=== PATIENT | female | born 1950 | race Caucasian/White ===

== ENCOUNTER → 2016-03-13 | Outpatient (CLI) | payer BC ==
[2016-03-13 22:27] LABS: ALT 66 U/L (9-52); AST 46 U/L (14-36); Alkaline Phosphatase 67 U/L (38-126); Anion Gap 10 mmol/L; Blood Urea Nitrogen 23 mg/dL (7-17); Calcium 9.6 mg/dL (8.4-10.2); Carbon Dioxide 26 mmol/L (22-30); Chloride 106 mmol/L (98-107); Cholesterol 156 mg/dL (<200); Glucose 93 mg/dL (74-99); HDL Cholesterol 51 mg/dL (40-60); Non-African American GFR(MDRD) >60 (>60 ml/min/1.73 sqM); Potassium 4.5 mmol/L (3.5-5.1); Sodium 142 mmol/L (137-145); Total Bilirubin 1.5 mg/dL (0.2-1.3); Total Protein 6.4 g/dL (6.3-8.2); Triglycerides 114 mg/dL (<150)
== END | disposition home or self-care (01) ==
LOC: MMGSC 09:41
PROVIDERS: ATTEND Family Medicine
DX: Z00.00 Encounter for general adult medical examination without abnormal findings (principal); R79.89 Other specified abnormal findings of blood chemistry; E78.00 Pure hypercholesterolemia, unspecified; I10 Essential (primary) hypertension
CPT/HCPCS: 36415; 80053; 80061; 82306

== ENCOUNTER → 2016-06-20 | Outpatient (CLI) | payer BC | LOC: MMGSC 12:06 | PROVIDERS: ATTEND Family Medicine | DX: N39.0 Urinary tract infection, site not specified (principal) | CPT/HCPCS: 87086 ==

== ENCOUNTER → 2016-08-22 | Outpatient (CLI) | payer BC ==
[2016-08-22 18:40] LABS: ALT 72 U/L (9-52); AST 51 U/L (14-36); Iron 84 ug/dL (37-170)
[2016-08-22 18:51] LABS: % Iron Saturation 27.6 % (20-50); Total Iron Binding Capacity 304 ug/dL (265-497)
[2016-08-22 19:58] LABS: Hepatitis B Surface Ag Index 0.04
[2016-08-22 20:03] LABS: Hepatitis B Core IgM Index 0.02
[2016-08-22 20:15] LABS: Hepatitis C Virus IgG Ab Negative (Negative); Hepatitis C Virus IgG Index 0.01
== END | disposition home or self-care (01) ==
LOC: MMGSC 10:12
PROVIDERS: ATTEND Family Medicine
DX: R79.89 Other specified abnormal findings of blood chemistry (principal)
CPT/HCPCS: 36415; 80074; 82390; 82728; 83516; 83540; 83550; 84450; 84460

== ENCOUNTER → 2017-01-09 | Outpatient (CLI) | payer MEDICARE, BC ==
[2017-01-09 19:04] LABS: ALT 66 U/L (9-52); AST 51 U/L (14-36); Alkaline Phosphatase 71 U/L (38-126); Anion Gap 8 mmol/L; Blood Urea Nitrogen 22 mg/dL (7-17); Calcium 9.3 mg/dL (8.4-10.2); Carbon Dioxide 27 mmol/L (22-30); Chloride 107 mmol/L (98-107); Cholesterol 208 mg/dL (<200); Glucose 97 mg/dL (74-99); HDL Cholesterol 57 mg/dL (40-60); Non-African American GFR(MDRD) >60 (>60 ml/min/1.73 sqM); Potassium 4.9 mmol/L (3.5-5.1); Sodium 142 mmol/L (137-145); Total Bilirubin 1.2 mg/dL (0.2-1.3); Total Protein 6.9 g/dL (6.3-8.2)
== END | disposition home or self-care (01) ==
LOC: MMGSC 10:35
PROVIDERS: ATTEND Family Medicine
DX: E78.5 Hyperlipidemia, unspecified (principal); I10 Essential (primary) hypertension; R79.89 Other specified abnormal findings of blood chemistry
CPT/HCPCS: 36415; 80053; 80061

== ENCOUNTER → 2017-08-23 | Outpatient (CLI) | payer MEDICARE, BC ==
[2017-08-23 10:14] LABS: Appearance,Urine Clear (Clear); Bacteria,Urine Rare /hpf; Bilirubin,Urine Negative (Negative); Blood,Urine Negative (Negative); Color,Urine Yellow; Glucose,Urine (UA) Negative (Negative); Ketones,Urine Negative (Negative); Leukocyte Esterase,Urine Trace (Negative); Mucus,Urine Occasional /hpf; Nitrite,Urine Negative (Negative); Protein,Urine Trace (Negative); RBC,Urine <1 /hpf (0-5); Specific Gravity,Urine 1.022 (1.001-1.035); Squamous Epithelial Cell,Urine <1 /hpf (0-4); Urobilinogen,Urine <2.0 mg/dL (<2.0); WBC,Urine 2 /hpf (0-5)
[2017-08-23 10:16] LABS: Basophils % (A) 1 %; Eosinophils # (A) 0.3 k/uL (0-0.7); Eosinophils % (A) 5 %; HCT 41.6 % (34.0-46.0); HGB 13.9 gm/dL (11.4-16.0); Lymphocytes # (A) 1.7 k/uL (1.0-4.8); Lymphocytes % (A) 29 %; MCH 29.2 pg (25.0-35.0); MCHC 33.3 g/dL (31.0-37.0); MCV 87.6 fL (80.0-100.0); Mean Platelet Volume 7.9; Monocytes # (A) 0.3 k/uL (0-1.0); Monocytes % (A) 6 %; Neutrophils # (A) 3.4 k/uL (1.3-7.7); Neutrophils % (A) 58 %; Platelet Count 247 k/uL (150-450); RBC 4.75 m/uL (3.80-5.40); RDW 13.6 % (11.5-15.5); WBC 5.9 k/uL (3.8-10.6)
[2017-08-23 10:30] LABS: Partial Thromboplastin Time 22.3 sec (22.0-30.0); Prothrombin Time 9.8 sec (9.0-12.0)
[2017-08-23 10:53] LABS: ALT 78 U/L (9-52); AST 56 U/L (14-36); Albumin 4.5 g/dL (3.5-5.0); Alkaline Phosphatase 80 U/L (38-126); Anion Gap 12 mmol/L; Blood Urea Nitrogen 27 mg/dL (7-17); Calcium 9.6 mg/dL (8.4-10.2); Carbon Dioxide 25 mmol/L (22-30); Chloride 105 mmol/L (98-107); Creatine Kinase 435 U/L (30-135); Glucose 104 mg/dL (74-99); Potassium 4.8 mmol/L (3.5-5.1); Sodium 142 mmol/L (137-145); Total Bilirubin 1.6 mg/dL (0.2-1.3); Total Protein 6.9 g/dL (6.3-8.2)
== END | disposition home or self-care (01) ==
LOC: LABWHC1 09:28
PROVIDERS: ATTEND Orthopaedic Surgery
DX: Z01.818 Encounter for other preprocedural examination (principal); M79.7 Fibromyalgia; Z01.812 Encounter for preprocedural laboratory examination
CPT/HCPCS: 36415; 80053; 81001; 82550; 85025; 85610; 85730; 87086; 93005

== ENCOUNTER → 2018-04-22 | Outpatient (CLI) | payer MEDICARE, BC ==
--- NOTE | 2018-04-23 10:28 | MM ---
Reason for exam: screening (asymptomatic). Last mammogram was performed 1 year and 2 months ago. History: Patient is postmenopausal and history of other cancer. Cyst aspiration of the right breast. Excisional biopsy of the left breast. Took estrogen for 15 years beginning at age 36. Physical Findings: A clinical breast exam by your physician is recommended on an annual basis and results should be correlated with mammographic findings. MG 3D Screening Mammo W/Cad Bilateral CC and MLO view(s) were taken. Prior study comparison: February 12, 2017, bilateral MG 3d screening mammo w/cad. September 13, 2015, bilateral MG 3d screening mammo w/cad. The breast tissue is almost entirely fat. Finding: There is a stable 3 mm oval mass in the central position of the right breast. There are benign appearing calcifications bilaterally. No significant changes in finding since February 12, 2017 and September 13, 2015. ASSESSMENT: Benign, BI-RAD 2 RECOMMENDATION: Routine screening mammogram of both breasts in 1 year.
== END | disposition home or self-care (01) ==
LOC: RADMAMWWP 08:36
PROVIDERS: ATTEND Family Medicine
DX: Z12.31 Encounter for screening mammogram for malignant neoplasm of breast (principal)
CPT/HCPCS: 77063; 77067

== ENCOUNTER → 2018-05-27 | Outpatient (CLI) | payer MEDICARE, BC ==
--- NOTE | 2018-05-27 10:18 | US ---
EXAMINATION TYPE: US liver DATE OF EXAM: 05/27/2018 COMPARISON: NONE CLINICAL HISTORY: R94.5 Abnormal LFT. EXAM MEASUREMENTS: Liver Length: 15.4 cm Gallbladder Wall: Surgically absent CBD: 0.6 cm Right Kidney: 11.0 x 4.1 x 4.8 cm Pancreas: wnl Liver: Increased attenuation Gallbladder: Surgically absent CBD: wnl Right Kidney: superior cyst noted measuring 2.6 x 1.9 x 2.4cm IMPRESSION: 1. Postcholecystectomy changes. 2. Liver is increased in attenuation to be seen with hepatic steatosis. Hepatitis or diffuse hepatoce llular disease in the differential diagnosis. 3. Simple appearing right renal cyst.
== END | disposition home or self-care (01) ==
LOC: RADUSWWP 09:33
PROVIDERS: ATTEND Family Medicine
DX: K76.0 Fatty (change of) liver, not elsewhere classified (principal); N28.1 Cyst of kidney, acquired; Z90.49 Acquired absence of other specified parts of digestive tract
CPT/HCPCS: 76705

== ENCOUNTER → 2019-08-21 | Outpatient (CLI) | payer MEDICARE, BC ==
--- NOTE | 2019-08-24 11:24 | MM ---
Reason for exam: screening (asymptomatic). Last mammogram was performed 1 year and 4 months ago. History: Patient is postmenopausal and history of other cancer. Cyst aspiration of the right breast. Excisional biopsy of the left breast. Took hormonal contraceptives for 10 years. Took estrogen for 15 years beginning at age 36. Physical Findings: A clinical breast exam by your physician is recommended on an annual basis and results should be correlated with mammographic findings. MG 3D Screening Mammo W/Cad Bilateral CC and MLO view(s) were taken. Prior study comparison: April 22, 2018, bilateral MG 3d screening mammo w/cad. February 12, 2017, bilateral MG 3d screening mammo w/cad. The breast tissue is almost entirely fat. Some medial dermal calcifications are benign. No significant changes when compared with prior studies. ASSESSMENT: Negative, BI-RAD 1 RECOMMENDATION: Routine screening mammogram of both breasts in 1 year.
== END | disposition home or self-care (01) ==
LOC: RADMAMWWP 13:16
PROVIDERS: ATTEND Family Medicine
DX: Z12.31 Encounter for screening mammogram for malignant neoplasm of breast (principal)
CPT/HCPCS: 77063; 77067

== ENCOUNTER → 2020-09-09 | Outpatient (CLI) | payer MEDICARE, BC ==
--- NOTE | 2020-09-12 14:19 | MM ---
Reason for exam: screening (asymptomatic). Last mammogram was performed 1 year and 1 month ago. History: Patient is postmenopausal and history of other cancer. Cyst aspiration of the right breast. Excisional biopsy of the left breast. Took hormonal contraceptives for 10 years. Took estrogen for 15 years beginning at age 36. Physical Findings: A clinical breast exam by your physician is recommended on an annual basis and results should be correlated with mammographic findings. MG 3D Screening Mammo W/Cad Bilateral CC and MLO view(s) were taken. Prior study comparison: August 21, 2019, bilateral MG 3d screening mammo w/cad. April 22, 2018, bilateral MG 3d screening mammo w/cad. There are scattered fibroglandular densities. ASSESSMENT: Negative, BI-RAD 1 RECOMMENDATION: Routine screening mammogram of both breasts in 1 year.
== END | disposition home or self-care (01) ==
LOC: RADMAMWWP 14:37
PROVIDERS: ATTEND Family Medicine
DX: Z12.31 Encounter for screening mammogram for malignant neoplasm of breast (principal); Z78.0 Asymptomatic menopausal state; Z85.9 Personal history of malignant neoplasm, unspecified; Z79.3 Long term (current) use of hormonal contraceptives
CPT/HCPCS: 77063; 77067

== ENCOUNTER 2021-02-05 12:40 | Emergency (ER) | payer MEDICARE, BC ==
[2021-02-05 12:44] VITALS: BP 133/57; PULSE 68; RESP 18; TEMP 97.9
[2021-02-05] MEDS ORDERED: ACETAMINOPHEN TAB 500 MG TAB PO STA (13:08)
[2021-02-05] MEDS ORDERED: IBUPROFEN 800 MG TAB PO STA (13:14)
--- NOTE | 2021-02-05 13:35 | XR ---
EXAMINATION TYPE: XR clavicle LT DATE OF EXAM: 02/05/2021 1:22 PM INDICATION: Patient age:Female; 71 years old; Reason for study: pain; PHH. COMPARISON: Radiograph the shoulder same day . TECHNIQUE: AP and cephalic tilt views were obtained of the left clavicle. FINDINGS: Left comminuted distal clavicle fracture if inferior displacement of the distal fragment by 1.0 cm. The visualized portions of lungs demonstrate increased interstitial lung markings. IMPRESSION: Left comminuted distal clavicle fracture with inferior displacement of the distal fragment. Increased interstitial lung markings suggesting pulmonary vascular congestion.
--- NOTE | 2021-02-05 13:36 | XR ---
EXAMINATION TYPE: XR shoulder complete LT DATE OF EXAM: 02/05/2021 1:22 PM INDICATION: Patient age:Female; 71 years old; Reason for study: fall, pain; PHH. COMPARISON: Radiograph same day TECHNIQUE: The left shoulder was examined in AP, internally rotated and axillary projections. FINDINGS: Left comminuted distal clavicle fracture if inferior displacement of the distal fragment by 1.0 cm. The visualized portions of lungs demonstrate increased interstitial lung markings. IMPRESSION: Left comminuted distal clavicle fracture with inferior displacement of the distal fragment.
--- NOTE | 2021-02-05 13:37 | ED ---
General Adult HPI - General Chief complaint: Fall Stated complaint: fall, shoulder injury Time Seen by Provider: 02/05/21 12:53 Source: patient, RN notes reviewed, old records reviewed Mode of arrival: ambulatory Limitations: physical limitation - History of Present Illness Initial comments: Patient is a 71-year-old female with no symptom past medical history who is currently recovering from Covid sensitive to department after falling last night. She states she tripped and fell as she was trying to navigate around her bed in the dark. She landed on an outstretched left arm. Patient states that she immediately had pain in her left shoulder. She has no other acute complaints at this time. Denies any sinus of breath, chest pain, abdominal pain , nausea, vomiting. Denies any headaches, weakness. Endorses pain with movement of the left shoulder. Denies any distal numbness or weakness. His no other acute complaints at this time. She presents emergency department over concern for possible genetic injury. She is not on blood thinners. Did not hit her head. No LOC. - Related Data Home Medications Medication Instructions Recorded Confirmed Lisinopril-Hctz 20-12.5 mg 1 tab PO DAILY 05/07/15 01/28/17 [Zestoretic 20-12.5] Omeprazole [PriLOSEC] 20 mg PO AC-BRKFST 05/07/15 01/28/17 Calcium Carbonate/Vitamin D3 1 each PO DAILY 01/28/17 01/28/17 [Calcium 600-Vit D3 200 Tablet] Pravastatin Sodium [Pravachol] 10 mg PO DAILY 01/28/17 01/28/17 Previous Rx's Medication Instructions Recorded HYDROcodone/APAP 5-325MG [Geneva 1 tab PO Q6HR PRN 3 Days #12 tab 02/05/21 5-325] Lidocaine 5% Patch [Lidoderm 5% 1 patch TOPICAL DAILY PRN #7 patch 02/05/21 Patch] Allergies Allergy/AdvReac Type Severity Reaction Status Date / Time No Known Allergies Allergy Verified 02/05/21 12:44 Review of Systems ROS Statement: Those systems with pertinent positive or pertinent negative responses have been documented in the HPI. Review of Systems: CONST: Denies fever EYES: Denies blurry vision ENT: Denies nasal congestion C/V: Denies Chest pain RESP: Denies shortness of breath GI: Denies abdominal pain : Denies dysuria SKIN: Denies rash. MSK: Endorses left shoulder pain NEURO: Denies headache ROS Other: All systems not noted in ROS Statement are negative. Past Medical History Past Medical History: GERD/Reflux, Hyperlipidemia, Hypertension History of Any Multi-Drug Resistant Organisms: None Reported Past Surgical History: Cholecystectomy, Hysterectomy Additional Past Surgical History / Comment(s): Detached retina on the left Past Anesthesia/Blood Transfusion Reactions: No Reported Reaction Past Psychological History: No Psychological Hx Reported Smoking Status: Former smoker Past Alcohol Use History: Rare Past Drug Use History: None Reported - Past Family History Father Family Medical History: Myocardial Infarction ([place]) Additional Family Medical History / Comment(s): Father passed from heart attack at age 64 Sister(s) Family Medical History: Cancer Additional Family Medical History / Comment(s): brain General Exam - General Exam Comments Initial Comments: General: Appears in mild discomfort secondary to left shoulder pain. HEAD: Normal with no signs of head trauma. EYES: PERRLA, EOMI, conjunctiva normal, no discharge. ENT: Hearing grossly intact, normal oropharynx. RESPIRATORY: Clear breath sounds bilaterally. No wheezes, rales, or rhonchi. C/V: Regular rate and rhythm. S1 and S2 auscultated, no edema, peripheral pulses 2+ and intact throughout ABD: Abd is soft, nontender, nondistended EXT: Reduced range of motion of the left shoulder secondary to pain. Neurovascular intact distal to left shoulder. Tender to palpation over the left clavicle as well as the left humeral head. SKIN: No rashes or lesions observed on exposed skin. NEURO: Alert and oriented 4. No focal sensory strength deficits. Limitations: physical limitation Course Vital Signs 02/05/21 12:41 Temperature 97.9 F Pulse Rate 68 Respiratory 18 Rate Blood Pressure 133/57 O2 Sat by Pulse 95 Oximetry Medical Decision Making - Medical Decision Making Based on the patient's presentation and physical exam, I am concerned for acute management injury the patient's left shoulder. Therefore we will obtain x-rays of the left shoulder. She'll be administered Tylenol and Motrin for pain control. She declined stronger pain medications at this time. She is in agreement with this plan. I do not believe that laboratory studies are required at this time. Patient has a left comminuted distal clavicle fracture with inferior d isplacement of the distal fragment.Patient was placed in a sling. I spoke with orthopedic surgery, Dr. Hart, who is agreeing with discharge and follow-up in the office. I will provide the patient with contact information for orthopedic surgery. She was in agreement this plan. She'll be given a prescription for Geneva 5 and opiate form was completed. Patient is stable for discharge home at this time. She was in agreement this plan. I will provide the patient with a prescription for Geneva 5, lidocaine patch. I instructed the patient to follow up with their PCP in the next 3 days. I provided contact information for follow up with Dr. Hart of orthopedic. I explained that the patient should return to the emergency department if they experience any worsening symptoms. Strict return precautions were discussed with the patient. The patient expressed understanding of these instructions. I answered all questions that the patient had. The patient was discharged home in fair condition with their prescriptions and follow up information. Disposition Clinical Impression: Fracture of left clavicle Disposition: HOME SELF-CARE Condition: Fair Instructions (If sedation given, give patient instructions): Clavicle Fracture (ED) Prescriptions: Lidocaine 5% Patch [Lidoderm 5% Patch] 1 patch TOPICAL DAILY PRN #7 patch PRN Reason: Pain HYDROcodone/APAP 5-325MG [Geneva 5-325] 1 tab PO Q6HR PRN 3 Days #12 tab PRN Reason: Pain Is patient prescribed a controlled substance at d/c from ED?: Yes If prescribed controlled substance>3 days was MAPS reviewed?: Prescribed <3 Days Referrals: Leyla Rapp MD [Primary Care Provider] - 1-2 days Stas Hart MD [STAFF PHYSICIAN] - 1-2 days
== END 2021-02-05 14:31 | disposition home or self-care (01) ==
LOC: EC 12:40
DX: S42.002A Fracture of unspecified part of left clavicle, initial encounter for closed fracture (principal); I10 Essential (primary) hypertension; E78.5 Hyperlipidemia, unspecified; K21.9 Gastro-esophageal reflux disease without esophagitis; Z90.49 Acquired absence of other specified parts of digestive tract; Z90.710 Acquired absence of both cervix and uterus; Z87.891 Personal history of nicotine dependence; W01.0XXA Fall on same level from slipping, tripping and stumbling without subsequent striking against object, initial encounter
CPT/HCPCS: 99283

== ENCOUNTER → 2021-11-24 | Outpatient (CLI) | payer MEDICARE, BC ==
--- NOTE | 2021-11-27 09:04 | MM ---
Reason for Exam: Screening (asymptomatic). Last mammogram was performed 1 year(s) and 2 month(s) ago. Patient History: Menarche at age 17. First Full-Term at age 32. Late child-bearing (after 32). Left ovary removed at age 36. Right ovary removed at age 36. Hysterectomy at age 36. Postmenopausal. Other cancer. Estrogen for 15 years from age 36 until age 51. Patient used Hormonal Contraceptives for 10 years. Cyst Aspiration on the Right side. Excisional Biopsy on the Left side. Risk Values: Jayla 5 year model risk: 2.6%. NCI Lifetime model risk: 7.8%. Prior Study Comparison: 04/22/2018 Bilateral Screening Mammogram, [facility]. 08/21/2019 Bilateral Screening Mammogram, [facility]. 09/09/2020 Bilateral Screening Mammogram, [facility]. Tissue Density: There are scattered fibroglandular densities. Findings: Analyzed By CAD. A few scattered small benign-appearing round calcifications throughout bilateral breasts are redemonstrated. Benign-appearing bilateral axillary lymph nodes are again seen. There is no suspicious new group of microcalcifications or new suspicious mass in either breast. Overall Assessment: Benign, BI-RAD 2 Management: Screening Mammogram of both breasts in 1 year. A clinical breast exam by your physician is recommended on an annual basis and results should be correlated with mammographic findings. Electronically signed and approved by: Shant Humphrey M.D.
== END | disposition home or self-care (01) ==
LOC: RADMAMWWP 13:55
PROVIDERS: ATTEND Family Medicine
DX: Z12.31 Encounter for screening mammogram for malignant neoplasm of breast (principal); Z78.0 Asymptomatic menopausal state
CPT/HCPCS: 77063; 77067

== ENCOUNTER → 2022-02-21 | Outpatient (CLI) | payer MEDICARE, BC ==
--- NOTE | 2022-02-21 10:02 | US ---
EXAMINATION TYPE: US liver DATE OF EXAM: 02/21/2022 COMPARISON: 05/27/2018 CLINICAL HISTORY: R94.5 abnormal liver function test. TECHNIQUE: Multiple sonographic images of the right upper quadrant are obtained. FINDINGS: EXAM MEASUREMENTS: Liver Length: 14.2 cm Gallbladder Wall: Surgically absent CBD: 0.58 cm Right Kidney: 9.2 x 4.1 x 4.2 cm Pancreas: wnl Liver: Increased attenuation Gallbladder: Surgically absent Evidence for sonographic Hart's sign: No CBD: wnl Right Kidney: wnl IMPRESSION: No evidence for acute process. No evidence suspicious mass or evidence for hepatic steato sis.
== END | disposition home or self-care (01) ==
LOC: RADUSWWP 08:36
PROVIDERS: ATTEND Family Medicine
DX: R94.5 Abnormal results of liver function studies (principal)
CPT/HCPCS: 76705

== ENCOUNTER → 2022-11-26 | Outpatient (CLI) | payer MEDICARE, BC ==
--- NOTE | 2022-11-27 20:54 | MM ---
Reason for Exam: Screening (asymptomatic). Last mammogram was performed 1 year(s) and 1 month(s) ago. Patient History: Menarche at age 17. First Full-Term at age 32. Late child-bearing (after 32). Left ovary removed at age 36. Right ovary removed at age 36. Hysterectomy at age 36. Postmenopausal. Other cancer. Estrogen for 15 years from age 36 until age 51. Patient used Hormonal Contraceptives for 10 years. Cyst Aspiration on the Right side. Excisional Biopsy on the Left side. Risk Values: Jayla 5 year model risk: 2.6%. NCI Lifetime model risk: 7.4%. Prior Study Comparison: 08/21/2019 Bilateral Screening Mammogram, [facility]. 09/09/2020 Bilateral Screening Mammogram, [facility]. 11/24/2021 Bilateral MG 3D screening mammo w/cad, [facility]. Tissue Density: The breast tissue is almost entirely fat. Findings: Analyzed By CAD. Benign oil cyst calcification superiorly on the right. There is no suspicious group of microcalcifications or new suspicious mass in either breast. Overall Assessment: Benign, BI-RAD 2 Management: Screening Mammogram of both breasts in 1 year. . Patient should continue monthly self-breast exams. A clinical breast exam by your physician is recommended on an annual basis. This exam should not preclude additional follow-up of suspicious palpable abnormalities. Note on Jayla scores and lifetime risk: 1. A Jayla score greater than 3% is considered moderate risk. If this is the case, consider specialist referral to assess eligibility for a risk reducing agent. 2. If overall lifetime risk for the development of breast cancer is 20% or higher, the patient may qualify for future screening with alternating mammogram and breast MRI. Electronically signed and approved by: Rubén Jj M.D. Radiologist
== END | disposition home or self-care (01) ==
LOC: RADMAMWWP 13:51
PROVIDERS: ATTEND Family Medicine
DX: Z12.31 Encounter for screening mammogram for malignant neoplasm of breast (principal); Z78.0 Asymptomatic menopausal state
CPT/HCPCS: 77063; 77067

== ENCOUNTER → 2023-11-28 | Outpatient (CLI) | payer MEDICARE, BC ==
--- NOTE | 2023-11-29 11:24 | MM ---
Reason for Exam: Screening (asymptomatic). Last screening mammogram was performed 12 month(s) ago. Patient History: Menarche at age 17. First Full-Term at age 32. Late child-bearing (after 32). Left ovary removed at age 36. Right ovary removed at age 36. Hysterectomy at age 36. Postmenopausal. Estrogen for 15 years from age 36 until age 51. Patient used Hormonal Contraceptives for 10 years. Cyst Aspiration on the Right side. Excisional Biopsy on the Left side. Risk Values: Jayla 5 year model risk: 2.6%. NCI Lifetime model risk: 7.1%. Prior Study Comparison: 09/09/2020 Bilateral Screening Mammogram, [facility]. 11/24/2021 Bilateral MG 3D screening mammo w/cad, [facility]. 11/26/2022 Bilateral MG 3D screening mammo w/cad, [facility]. Tissue Density: The breasts are almost entirely fatty. Findings: Analyzed By CAD. Right breast: There is no suspicious group of microcalcifications or new suspicious mass. Left breast: There is no suspicious group of microcalcifications or new suspicious mass. Overall Assessment: Negative, BI-RAD 1 Management: Screening Mammogram of both breasts in [address] [facility] will attempt to contact patient to return for supplemental views and ultrasound if indicated. Patient should continue monthly self-breast exams. A clinical breast exam by your physician is recommended on an annual basis. This exam should not preclude additional follow-up of suspicious palpable abnormalities. Note on Jayla scores and lifetime risk: 1. A Jayla score greater than 3% is considered moderate risk. If this is the case, consider specialist referral to assess eligibility for a risk reducing agent. 2. If overall lifetime risk for the development of breast cancer is 20% or higher, the patient may qualify for future screening with alternating mammogram and breast MRI. [facility], , 11/29/2023 11:21 AM. Electronically signed and approved by: Luis Miguel Aponte DO
== END | disposition home or self-care (01) ==
LOC: RADMAMWWP 13:20
PROVIDERS: ATTEND Family Medicine
DX: Z12.31 Encounter for screening mammogram for malignant neoplasm of breast
CPT/HCPCS: 77063; 77067